=== PATIENT | female | born 1980 | race Caucasian/White ===

== ENCOUNTER 2021-04-23 04:43 | Day surgery (SDC) | payer OTHER ==
[2021-04-23] MEDS ORDERED: BUPIVACAINE HCL/PF 0.5% (5MG/ML) 10 ML VIAL ONE (14:12)
[2021-04-23] MEDS ORDERED: SCOPOLAMINE HYDROBROMIDE 1 PATCH PATCH.TD72 ONE (15:26)
[2021-04-23] MEDS ORDERED: LIDOCAINE HCL/PF 2% SDV 5ML VIAL ONE (15:26)
[2021-04-23] MEDS ORDERED: PROPOFOL 20 ML ONE ×2 (15:26→16:12)
[2021-04-23] MEDS ORDERED: DEXAMETHASONE SOD PHOSPHATE 4 MG/1 ML VIAL ONE (15:26)
[2021-04-23] MEDS ORDERED: MIDAZOLAM HCL 2 MG/2 ML SINGLE DOSE VIAL ONE (15:27)
[2021-04-23] MEDS ORDERED: ceFAZolin SODIUM 1 GM VIAL ONE (15:45)
[2021-04-23] MEDS ORDERED: ROCURONIUM BROMIDE 100 MG/10 ML VIAL ONE (15:47)
[2021-04-23] MEDS ORDERED: ceFAZolin 2 GRAM PREMIX BAG IVPB ONE (15:51)
[2021-04-23] MEDS ORDERED: ONDANSETRON 4 MG/2 ML VIAL IVPUSH PRN (16:13)
[2021-04-23] MEDS ORDERED: oxyCODONE HCL 5 MG TABLET PO PRN ×2 (16:13)
[2021-04-23] MEDS ORDERED: ACETAMINOPHEN 1000 MG/100 ML VIAL (NON FORMULARY) IVPB ONE (16:14)
[2021-04-23] MEDS ORDERED: LACTATED RINGERS SOLUTION 1,000 ML IV SCH (16:15)
[2021-04-23] MEDS ORDERED: NEOSTIGMINE METHYLSULFATE 0.5 MG/ML - 10 ML MDV ONE (16:27)
[2021-04-23] MEDS ORDERED: ONDANSETRON 4 MG/2 ML VIAL ONE (19:02)
[2021-04-23 19:13] VITALS: BP 140/87; PULSE 57; TEMP 98.4
== END 2021-04-23 19:38 | disposition home or self-care (01) ==
LOC: JASU-SURG 04:43
PROVIDERS: ATTEND Specialist
PROC: 0UT74ZZ Resection of Bilateral Fallopian Tubes, Percutaneous Endoscopic Approach (ICD-10-PCS; principal; 2021-04-23 14:30)
DX: Z30.2 Encounter for sterilization (principal)
CPT/HCPCS: 88300-TC; 88302-TC; 94760